=== PATIENT | female | born 1950 | race Hispanic/Latino ===

== ENCOUNTER 2019-02-12 21:39 | Inpatient (IN) | payer MEDICARE ==
[~2019-02-12] VITALS: Ht 147.3 cm; Wt 90.4 kg
[2019-02-12] MEDS ORDERED: ACETAMINOPHEN 650 MG SUPPOSITORY RC ONE (21:51)
[2019-02-12 21:57] LABS: BASOPHILS % (AUTO) 0.3 % (0.0-5.0); EOSINOPHILS % (AUTO) 0.7 % (0.0-8.0); HEMATOCRIT 37.1 % (36-48); LYMPHOCYTES % (AUTO) 10.3 % (21.0-51.0); MEAN CORPUSCULAR HEMOGLOBIN 28.1 pg (27.0-33.0); MEAN CORPUSCULAR HGB CONC 31.9 g/dL (32.0-36.0); MONOCYTES % (AUTO) 5.5 % (3.0-13.0); NEUTROPHILS % (AUTO) 83.2 % (40.0-77.0); PLATELET COUNT (AUTO) 236 K/uL (130-400); RED BLOOD CELL COUNT(AUTO) 4.22 MIL/uL (4.00-5.50); RED CELL DISTRIBUTION WIDTH 14.7 % (11.0-15.5); WHITE BLOOD COUNT (AUTO) 16.2 K/uL (4.8-10.8)
[2019-02-12 22:13] LABS: INR 0.95 (0.85-1.15); PARTIAL THROMBOPLASTIN TIME 29.7 SEC (26.3-35.5)
[2019-02-12 22:14] LABS: CARBON DIOXIDE 22 mmol/L (21-32); CHLORIDE 101 mmol/L (101-111); CREATININE 1.4 mg/dL (0.5-1.5); GLOMERULAR FILTR. RATE CALC 40 mL/min (>60); GLUCOSE,RANDOM 192 mg/dL (70-105); POTASSIUM 4.6 mmol/L (3.5-5.1); SODIUM SERUM 136 mmol/L (136-145); UREA NITROGEN, BLOOD 29 mg/dL (7-18)
[2019-02-12 22:14] LABS: APPEARANCE,URINE Clear (CLEAR); BILIRUBIN,URINE Negative (NEGATIVE); COLOR,URINE Yellow (YELLOW); GLUCOSE, URINE (UA) Negative (NEGATIVE); KETONES,URINE Negative (NEGATIVE); LEUKOCYTE ESTERASE ,URINE Negative (NEGATIVE); NITRATE,URINE Negative (NEGATIVE); OCCULT BLOOD,URINE Negative (NEGATIVE); PROTEIN,URINE POS 1+ mg/dL (NEGATIVE); UROBILINOGEN,URINE 0.2 mg/dL (0.2-1.0)
[2019-02-12 22:18] LABS: RAPID GROUP A STREP NEGATIVE (NEGATIVE)
[2019-02-12] MEDS ORDERED: SODIUM CHLORIDE 0.9% 1000ML 2,000 ML IV ONE (22:20)
[2019-02-12 22:26] LABS: ALANINE AMINOTRANSFERASE 18 U/L (12-78); ASPARTATE AMINOTRANSFERASE 31 U/L (10-37); BILIRUBIN,TOTAL 0.3 mg/dL (0.2-1.0); CREATINE KINASE, TOTAL 46 U/L (21-232); TROPONIN I < 0.04 ng/mL (0.00-0.06)
[2019-02-12 22:27] LABS: MYOGLOBIN 65 ng/mL (10-92); TOTAL PROTEIN, SERUM 7.9 g/dL (6.0-8.3)
[2019-02-12 22:52] LABS: BACTERIA,URINE Few /HPF (None Seen); RBC,URINE 0-1 /HPF (0-1); SQUAMOUS EPITHELIAL CELL,UR 0-2 /HPF (0-2); WBC,URINE 0-1 /HPF (0-1)
[2019-02-12] MEDS ORDERED: ZOSYN 3.375GM+NS 50ML 50 ML IV ONE (22:56)
[2019-02-12] MEDS ORDERED: VANCOMYCIN 1GM+NS 250ML 500 ML IV ONE (22:56)
[2019-02-13] MEDS ORDERED: ONDANSETRON HCL 4 MG/2 ML VIAL IV PRN (01:30)
[2019-02-13] MEDS ORDERED: VANCOMYCIN PROTOCOL PER PHARMACY IV SCH (01:30)
[2019-02-13] MEDS ORDERED: MORPHINE SULFATE 2 MG/ML 1ML SYG IV PRN (01:30)
[2019-02-13] MEDS: ENOXAPARIN SODIUM 40 MG/0.4 ML SYRINGE SQ SCH (09:00)
[2019-02-13] MEDS ORDERED: ZOSYN 3.375GM+NS 50ML 50 ML IV ONE ×2 (09:02→16:34)
[2019-02-13] MEDS ORDERED: ENOXAPARIN SODIUM 40 MG/0.4 ML SYRINGE SQ ONE (09:02)
[2019-02-13] MEDS ORDERED: FAMOTIDINE/PF 20 MG/2 ML VIAL IV ONE (09:03)
[2019-02-13] MEDS ORDERED: COMPOUND IV REFRIGERATED 1 EACH IVSOLN MISC PRN (11:15)
[2019-02-13] MEDS: SODIUM CHLORIDE 0.9% 1000ML 1,000 ML IV SCH ×3 (11:25→20:38)
[2019-02-13] MEDS: VANCOMYCIN 750MG + NS 250 ML IV SCH ×2 (12:00)
[2019-02-13] MEDS: ZOSYN 3.375GM+NS 50ML 50 ML IV SCH ×3 (13:00→20:38)
[2019-02-13] MEDS ORDERED: ACETAMINOPHEN 325 MG TAB ONE (13:55)
[2019-02-13 17:15] VITALS: BP 156/78
--- NOTE | 2019-02-13 17:15 | NUR ---
Patient received by ER. Patient accompanied by a friend. Bed placed to lowest position, IV to right hand in place, patent and wrapped with kerlex. Oriented to room. In no distress. Call light placed within reach. Pending to bring home medications
[2019-02-13 20:00] VITALS: BP 162/73
--- NOTE | 2019-02-13 20:00 | NUR ---
CONFUSED Pt awake,alert,disoriented to time and place.Fall precautions initiated.Partida cath secured,draining clear yellow urine.TUrned and repositioned per staff.Reoriented prn.
[2019-02-13] MEDS: FAMOTIDINE 20MG TAB 20 MG TAB PO SCH (20:36)
[2019-02-13] MEDS: INSULIN HUMULIN R 100 UNIT/ML 3ML SQ SCH (20:37)
[2019-02-13] MEDS: ACETAMINOPHEN 325 MG TAB PO PRN (23:50)
[2019-02-13 23:52] VITALS: BP 187/84
[2019-02-14] VITALS (7 sets, daily range): BP systolic 142–177; BP diastolic 68–84
--- NOTE | 2019-02-14 05:04 | NUR ---
SLEPT Pt slept fairly well.Partida cath patent,lina care rendered.Partida secured with strap.Partida bag below bladder.
[2019-02-14] MEDS: ZOSYN 3.375GM+NS 50ML 50 ML IV SCH ×3 (05:08→19:52)
[2019-02-14] MEDS: INSULIN HUMULIN R 100 UNIT/ML 3ML SQ SCH ×4 (05:43→19:55)
--- NOTE | 2019-02-14 09:20 | NUR ---
KATELYN Guerra met with pt who lives with her disabled brother Sage Gatica. Per pt, she has a provider daily on - from 8 to 1 thru [facility] ( Alanna Streetite[facility] [phone]). Pt has assist with [facility], and home management. Pt uses taxi for transport. Pt has [facility] nurse Gabriella Gatica [phone] comes daily to give pt her insulin shots.Pt has Walker, w/c, shower chair and bsc at home. Plan is home with current services. Mari called [facility] to verify above information. Per caregiver, pt and brother are both disabled. Pt is her own decision maker, but has her cousin Blossom Quintana [phone] as her MPOA in event of an emergency. Pt never or had kids. Pt has another brother, but he is estranged from pt and brother. Addendum: 02/14/19 at 0996 by ABBY SABA Amended: Links added.
[2019-02-14] MEDS: SODIUM CHLORIDE 0.9% 1000ML 1,000 ML IV SCH ×2 (10:29→22:45)
[2019-02-14] MEDS: FAMOTIDINE 20MG TAB 20 MG TAB PO SCH (10:30)
[2019-02-14] MEDS: ENOXAPARIN SODIUM 40 MG/0.4 ML SYRINGE SQ SCH (10:31)
[2019-02-14] MEDS ORDERED: AMLODIPINE BESYLATE 5 MG TAB PO SCH (10:50)
[2019-02-14] MEDS: ACETAMINOPHEN 325 MG TAB PO PRN (10:56)
[2019-02-14] MEDS: VANCOMYCIN 750MG + NS 250 ML IV SCH ×2 (12:30)
[2019-02-14] MEDS: METOPROLOL TARTRATE 25 MG TAB PO SCH (19:52)
[2019-02-15] VITALS (9 sets, daily range): BP systolic 131–200; BP diastolic 59–93
[2019-02-15] MEDS: ACETAMINOPHEN 325 MG TAB PO PRN (00:30)
[2019-02-15] MEDS: ZOSYN 3.375GM+NS 50ML 50 ML IV SCH ×3 (04:05→20:11)
[2019-02-15 06:41] LABS: BASOPHILS % (AUTO) 0.6 % (0.0-5.0); EOSINOPHILS % (AUTO) 4.7 % (0.0-8.0); HEMATOCRIT 31.9 % (36-48); MEAN CORPUSCULAR HEMOGLOBIN 29.4 pg (27.0-33.0); MEAN CORPUSCULAR HGB CONC 33.3 g/dL (32.0-36.0); MEAN CORPUSCULAR VOLUME 88.4 fL (79-99); MONOCYTES % (AUTO) 12.3 % (3.0-13.0); NEUTROPHILS % (AUTO) 47.4 % (40.0-77.0); PLATELET COUNT (AUTO) 180 K/uL (130-400); RED BLOOD CELL COUNT(AUTO) 3.62 MIL/uL (4.00-5.50); WHITE BLOOD COUNT (AUTO) 4.5 K/uL (4.8-10.8)
[2019-02-15 06:50] LABS: CREATININE 1.3 mg/dL (0.5-1.5); MAGNESIUM 1.7 mg/dL (1.80-2.40); PHOSPHORUS 2.6 mg/dL (2.5-4.9); POTASSIUM 3.6 mmol/L (3.5-5.1)
[2019-02-15] MEDS: INSULIN HUMULIN R 100 UNIT/ML 3ML SQ SCH ×4 (07:02→20:10)
[2019-02-15] MEDS: AMLODIPINE BESYLATE 5 MG TAB PO SCH (09:21)
[2019-02-15] MEDS: FAMOTIDINE 20MG TAB 20 MG TAB PO SCH (09:21)
[2019-02-15] MEDS: METOPROLOL TARTRATE 25 MG TAB PO SCH ×2 (09:21→20:11)
[2019-02-15] MEDS: ENOXAPARIN SODIUM 40 MG/0.4 ML SYRINGE SQ SCH (09:23)
[2019-02-15] MEDS ORDERED: MAGNESIUM 2GM PREMIX 50ML 50 ML IV PRN (11:15)
--- NOTE | 2019-02-15 13:00 | NUR ---
DR. Szymanski AWARE OF + BLOOD CULTURES. OKAY TO CONTINUE ABT. ELAINE AND [employer].
[2019-02-15] MEDS ORDERED: COMPOUND IV REFRIGERATED 1 EACH IVSOLN MISC PRN (14:00)
[2019-02-15] MEDS: VANCOMYCIN 1.25 GM in SODIUM CHLORIDE 0.9% 250 ML IV SCH (17:22)
[2019-02-15] MEDS: LUBIPROSTONE 24 MCG CAP PO SCH (17:49)
[2019-02-16] MEDS: ZOSYN 3.375GM+NS 50ML 50 ML IV SCH ×3 (04:19→20:44)
[2019-02-16 04:23] VITALS: BP 196/102
[2019-02-16 04:44] LABS: BASOPHILS % (AUTO) 0.2 % (0.0-5.0); EOSINOPHILS % (AUTO) 3.4 % (0.0-8.0); HEMATOCRIT 31.3 % (36-48); LYMPHOCYTES % (AUTO) 30.2 % (21.0-51.0); MEAN CORPUSCULAR HEMOGLOBIN 28.9 pg (27.0-33.0); MEAN CORPUSCULAR VOLUME 87.4 fL (79-99); MONOCYTES % (AUTO) 14.1 % (3.0-13.0); NEUTROPHILS % (AUTO) 52.1 % (40.0-77.0); NUCLEATED RED BLOOD CELLS 0.1 % (0.0-0.19); PLATELET COUNT (AUTO) 226 K/uL (130-400); RED BLOOD CELL COUNT(AUTO) 3.58 MIL/uL (4.00-5.50); RED CELL DISTRIBUTION WIDTH 14.9 % (11.0-15.5); WHITE BLOOD COUNT (AUTO) 6.1 K/uL (4.8-10.8)
[2019-02-16 04:52] VITALS: BP 161/87
[2019-02-16 05:09] LABS: CREATININE 1.3 mg/dL (0.5-1.5); MAGNESIUM 2.3 mg/dL (1.80-2.40); POTASSIUM 4.1 mmol/L (3.5-5.1)
[2019-02-16] MEDS: INSULIN HUMULIN R 100 UNIT/ML 3ML SQ SCH ×4 (06:32→21:50)
[2019-02-16 08:00] VITALS: BP 173/82
[2019-02-16] MEDS: LUBIPROSTONE 24 MCG CAP PO SCH ×2 (08:00→17:12)
--- NOTE | 2019-02-16 10:00 | NUR ---
INITIAL Addendum: 02/16/19 at 1752 by ANGELITO HERNANDEZ RN CM Amended: Links added.
[2019-02-16] MEDS: AMLODIPINE BESYLATE 5 MG TAB PO SCH (10:33)
[2019-02-16] MEDS: FAMOTIDINE 20MG TAB 20 MG TAB PO SCH (10:33)
[2019-02-16] MEDS: METOPROLOL TARTRATE 25 MG TAB PO SCH ×2 (10:33→20:40)
[2019-02-16] MEDS: ENOXAPARIN SODIUM 40 MG/0.4 ML SYRINGE SQ SCH (10:34)
[2019-02-16 12:07] VITALS: BP 163/94
[2019-02-16] MEDS: VANCOMYCIN 1.25 GM in SODIUM CHLORIDE 0.9% 250 ML IV SCH (12:21)
--- NOTE | 2019-02-16 14:00 | NUR ---
DECLINED SNF PT STATES DOES NOT WANT TO GO TO [facility]- HAS TO BE HOME TO LOOK AFTER HER BROTHER- 'HE IS MENTALLY RETARD, AND I HELP THE PORVIDERS, TELL THEM HOW TO LOOK AFTER HIM, [facility] CAR[facility], BUT NO PT. CALL TO DR. MARIE OFFICE TO DISCUSS EXTRA SERVICES- WILL FAX PT NOTES/EVAL TO HER CURRENT HOME HEALTH AND HER MD OFFICE TO EXPEDITE PT ON DISCHARGE. CM TO FOLLOW Addendum: 02/16/19 at 1752 by ANGELITO HERNANDEZ RN CM Amended: Links added.
[2019-02-16 16:00] VITALS: BP 169/88
--- NOTE | 2019-02-16 18:50 | NUR ---
PT AGREED TO SNF FAMILY AT B/SIDE- OFFERING TO LOOK AFTER BROTHER MUKUND PT GOES TO REHAB - PT AGREED TO SNF- SHOULD BE IN [place], ADVISED THEM THAT MINOR WOULD WORK ON THIS IN , ADVISED THANH JACQUES TO PASS ON TO MINOR AND TO THAT PT WILL AGREE TO SNF FOR REHAB AND POSSIBLE IV ABX. Addendum: 02/16/19 at 1928 by ANGELITO HERNANDEZ RN CM Amended: Links added.
[2019-02-16 20:00] VITALS: BP 194/85
[2019-02-17] VITALS (7 sets, daily range): BP systolic 148–194; BP diastolic 65–93
[2019-02-17 04:43] LABS: BASOPHILS % (AUTO) 0.5 % (0.0-5.0); EOSINOPHILS % (AUTO) 4.4 % (0.0-8.0); HEMATOCRIT 32.1 % (36-48); LYMPHOCYTES % (AUTO) 32.8 % (21.0-51.0); MEAN CORPUSCULAR HEMOGLOBIN 29.1 pg (27.0-33.0); MEAN CORPUSCULAR HGB CONC 33.2 g/dL (32.0-36.0); MEAN CORPUSCULAR VOLUME 87.6 fL (79-99); MONOCYTES % (AUTO) 15.8 % (3.0-13.0); NEUTROPHILS % (AUTO) 46.5 % (40.0-77.0); PLATELET COUNT (AUTO) 227 K/uL (130-400); RED BLOOD CELL COUNT(AUTO) 3.66 MIL/uL (4.00-5.50); RED CELL DISTRIBUTION WIDTH 14.5 % (11.0-15.5); WHITE BLOOD COUNT (AUTO) 6.8 K/uL (4.8-10.8)
[2019-02-17 04:57] LABS: CREATININE 1.4 mg/dL (0.5-1.5); POTASSIUM 3.9 mmol/L (3.5-5.1)
[2019-02-17] MEDS: ACETAMINOPHEN 325 MG TAB PO PRN ×2 (05:15→13:34)
[2019-02-17] MEDS: ZOSYN 3.375GM+NS 50ML 50 ML IV SCH ×3 (05:16→20:33)
--- NOTE | 2019-02-17 05:20 | NUR ---
Hypertensive-called N.P to inform of persistently high B/P. Currently, B/P 194/79, P75, new orders given, refer to md orders.
[2019-02-17] MEDS ORDERED: HYDRALAZINE HCL 20 MG/ML VIAL IV PRN (05:30)
[2019-02-17] MEDS ORDERED: HYDRALAZINE HCL 20 MG/ML VIAL ONE (05:33)
[2019-02-17] MEDS: INSULIN HUMULIN R 100 UNIT/ML 3ML SQ SCH ×3 (08:09→20:24)
[2019-02-17] MEDS: METOPROLOL TARTRATE 25 MG TAB PO SCH ×2 (09:35→20:33)
[2019-02-17] MEDS: AMLODIPINE BESYLATE 5 MG TAB PO SCH (09:36)
[2019-02-17] MEDS: LUBIPROSTONE 24 MCG CAP PO SCH ×2 (09:36→18:15)
[2019-02-17] MEDS: FAMOTIDINE 20MG TAB 20 MG TAB PO SCH (09:36)
[2019-02-17] MEDS: ENOXAPARIN SODIUM 40 MG/0.4 ML SYRINGE SQ SCH (09:40)
[2019-02-17] MEDS: VANCOMYCIN 1.25 GM in SODIUM CHLORIDE 0.9% 250 ML IV SCH (18:15)
[2019-02-17] MEDS ORDERED: INSULIN GLARGINE 100 UNITS/ML 10 ML VIAL SQ ONE (23:30)
[2019-02-18] MEDS: ACETAMINOPHEN 325 MG TAB PO PRN (03:29)
[2019-02-18 04:21] VITALS: BP 172/70
[2019-02-18] MEDS: ZOSYN 3.375GM+NS 50ML 50 ML IV SCH ×3 (05:44→20:24)
[2019-02-18 06:07] LABS: HEMATOCRIT 32.8 % (36-48); MEAN CORPUSCULAR HEMOGLOBIN 28.9 pg (27.0-33.0); MEAN CORPUSCULAR HGB CONC 32.8 g/dL (32.0-36.0); MEAN CORPUSCULAR VOLUME 87.9 fL (79-99); PLATELET COUNT (AUTO) 280 K/uL (130-400); RED BLOOD CELL COUNT(AUTO) 3.74 MIL/uL (4.00-5.50); RED CELL DISTRIBUTION WIDTH 15.2 % (11.0-15.5); WHITE BLOOD COUNT (AUTO) 8.5 K/uL (4.8-10.8)
[2019-02-18 06:15] LABS: CREATININE 1.4 mg/dL (0.5-1.5); POTASSIUM 3.8 mmol/L (3.5-5.1)
[2019-02-18] MEDS: INSULIN HUMULIN R 100 UNIT/ML 3ML SQ SCH ×4 (06:57→20:42)
[2019-02-18 07:03] LABS: EOSINOPHILS % (MANUAL) 6 % (1-6); LYMPHOCYTES % (MANUAL) 39 % (22-44); MAN.DIFF COMMENT-IMPRESSION MANUAL DIFFERENTIAL; MONOCYTES % (MANUAL) 10 % (2-9); SEGMENTED NEUTROPHILS % 45 % (40-70)
[2019-02-18 07:04] LABS: PLATELET MORPHOLOGY COMMENT ADEQUATE
[2019-02-18 07:30] VITALS: BP 181/79
[2019-02-18] MEDS: AMLODIPINE BESYLATE 5 MG TAB PO SCH (09:03)
[2019-02-18] MEDS: FAMOTIDINE 20MG TAB 20 MG TAB PO SCH (09:03)
[2019-02-18] MEDS: ENOXAPARIN SODIUM 40 MG/0.4 ML SYRINGE SQ SCH (09:04)
[2019-02-18] MEDS: METOPROLOL TARTRATE 25 MG TAB PO SCH ×2 (09:04→20:24)
[2019-02-18] MEDS: LUBIPROSTONE 24 MCG CAP PO SCH ×2 (09:04→17:04)
[2019-02-18 11:00] VITALS: BP 150/72
[2019-02-18] MEDS ORDERED: ACETAMINOPHEN 325 MG TAB PO PRN (12:45)
[2019-02-18] MEDS: VANCOMYCIN 1.25 GM in SODIUM CHLORIDE 0.9% 250 ML IV SCH (14:21)
--- NOTE | 2019-02-18 15:55 | NUR ---
SNF REFERRAL CM spoke to pt regarding d/c planning. CM explained to pt possible need for oil heaterman IV abx and continued PT needs. CM offered short term snf/rehab as possible d/c option. Notified CM that she cares for her ill brother. CM asked if pt has family member that can continue to assist in his care. States she has a cousin that can care for her brother. CM explained that placement would be short term. Verbalized understanding. Pt then agreed to placement. CM offered choices. Obtained consent for [facility]. CM to fax referral and f/u. Pt is still pending Dr. Stearns's final recommendations for abx. Addendum: 02/18/19 at 1557 by HECTOR REGALADO Amended: Links added.
[2019-02-18 16:00] VITALS: BP 146/76
--- NOTE | 2019-02-18 20:25 | NUR ---
MEDS SHIFT ASSESSMENT DONE, PLEASE REFER TO CHART. DUE MEDS ADMINISTERED, TOLERATED WELL. CALL JANETH CLINTON. WILL MONITOR PT. Addendum: 02/18/19 at 2204 by TAMMY JOHNSON RN RN Amended: Links added.
[2019-02-18 20:46] VITALS: BP 185/84
[2019-02-18] MEDS ORDERED: INSULIN GLARGINE 100 UNITS/ML 10 ML VIAL SQ SCH ×2 (21:00)
--- NOTE | 2019-02-18 22:00 | NUR ---
ROUNDS PT RESTING WELL, FAIRLY ASLEEP WITH RESPIRATIONS EVEN AND UNLABORED. NO NOTED DISTRESS. KEPT UNDISTURBED FOR NOW. WILL MONITOR PT.
--- NOTE | 2019-02-18 23:00 | NUR ---
MD DR LIVINGSTON IN TO MAKE ROUNDS, NO ORDERS GIVEN.
[2019-02-18 23:49] VITALS: BP 151/60
--- NOTE | 2019-02-19 02:00 | NUR ---
ROUNDS PT IS FAIRLY ASLEEP WITH RESPIRATIONS EVEN AND UNLABORED. PT MOANS AND MUMBLES WHILE ASLEEP BUT NO DISTRESS NOTED. KEPT COMFORTABLE IN BED. CALL LIGHT WITHIN REACH. WILL MONITOR CLOSELY.
[2019-02-19] MEDS: ZOSYN 3.375GM+NS 50ML 50 ML IV SCH ×2 (04:26→11:57)
[2019-02-19 04:41] VITALS: BP 156/73
[2019-02-19 04:43] VITALS: BP_SYST 122; BP_SYST 156; BP_DIAS 69; BP_DIAS 73
[2019-02-19] MEDS: INSULIN HUMULIN R 100 UNIT/ML 3ML SQ SCH ×3 (05:51→17:18)
--- NOTE | 2019-02-19 05:51 | NUR ---
MEDS AWAKENED PT FOR DUE MEDS. EASILY AWAKENS BUT WENT BACK TO SLEEP AFTER INSULIN DOSE WAS GIVEN. KEPT COMFORTABLE. CALL LIGHT WITHIN REACH. FOR MORE CARE.
[2019-02-19 08:00] VITALS: BP 150/55
[2019-02-19] MEDS: LUBIPROSTONE 24 MCG CAP PO SCH ×2 (09:01→17:15)
[2019-02-19] MEDS: AMLODIPINE BESYLATE 5 MG TAB PO SCH (09:01)
[2019-02-19] MEDS: FAMOTIDINE 20MG TAB 20 MG TAB PO SCH (09:01)
[2019-02-19] MEDS: METOPROLOL TARTRATE 25 MG TAB PO SCH (09:02)
[2019-02-19] MEDS: ENOXAPARIN SODIUM 40 MG/0.4 ML SYRINGE SQ SCH (09:02)
[2019-02-19 11:00] VITALS: BP 145/76
[2019-02-19] MEDS ORDERED: CEFUROXIME AXETIL 250 MG TABLET PO SCH (13:45)
[2019-02-19 16:00] VITALS: BP 145/70
--- NOTE | 2019-02-19 17:00 | NUR ---
cm note [facility] has accepted pt updated gallo martins
--- NOTE | 2019-02-19 19:34 | NUR ---
PATIENT DISCHARGE PATIENT DISCHARGED TO [facility]. REPORT CALLED TO DAGOBERTO JACQUES AT APPROX 1845 HOURS. TRANSPORTATION TO BE PROVIDED BY [facility]. IV DISCONTINUED, BLEEDING CONTROLLED, CATHLON INTACT, PATIENT TOLERATED WITHOUT INCIDENT. SECURITY RETURNED PATIENT'S PROPERTY [facility] ARRIVED AT APPROX 1920 HOURS TO TRANSPORT PATIENT.
== END 2019-02-19 20:00 | DRG 872 ==
LOC: EDH 21:39 → EDHIP 02-13 01:25 → 3DH 02-13 17:06
PROVIDERS: ADMIT Internal Medicine; ATTEND Internal Medicine
DX: A41.89 Other specified sepsis (principal); E44.0 Moderate protein-calorie malnutrition; N17.9 Acute kidney failure, unspecified; Z68.41 Body mass index [BMI] 40.0-44.9, adult; N39.0 Urinary tract infection, site not specified; I10 Essential (primary) hypertension; E83.42 Hypomagnesemia; E66.01 Morbid (severe) obesity due to excess calories; E11.65 Type 2 diabetes mellitus with hyperglycemia; B96.89 Other specified bacterial agents as the cause of diseases classified elsewhere; D64.9 Anemia, unspecified; E11.9 Type 2 diabetes mellitus without complications; R33.9 Retention of urine, unspecified; F20.9 Schizophrenia, unspecified; F32.9 Major depressive disorder, single episode, unspecified; F41.9 Anxiety disorder, unspecified; K59.00 Constipation, unspecified; W01.0XXA Fall on same level from slipping, tripping and stumbling without subsequent striking against object, initial encounter; Z86.711 Personal history of pulmonary embolism; Y93.89 Activity, other specified; Y92.091 Bathroom in other non-institutional residence as the place of occurrence of the external cause; Y99.8 Other external cause status; Z83.3 Family history of diabetes mellitus
CPT/HCPCS: 36415; 70450; 71045; 73562; 80048; 80053; 80202; 81001; 82270; 82550; 82948; 83605; 83735; 83874; 84100; 84484; 85025; 85610; 85730; 87040; 87077; 87088; 87186; 87804; 87880; 93005; 93306; 97039; G0378; J0360; J1650; J1815; J2543; J3370; J3475; J3490; J7030